=== PATIENT | female | born 1935 | race African-American/Black ===

== ENCOUNTER 2016-10-25 10:01 | Observation (INO) | payer BC, MEDICARE ==
[~2016-10-25] VITALS: Ht 162.6 cm; Wt 58.1 kg
[2016-10-25] MEDS ORDERED: FUROSEMIDE 40MG/4ML VIAL IV STA (10:27)
[2016-10-25] MEDS ORDERED: NITROGLYCERIN OINT 1GM/INCH UDPKT TD STA (10:27)
[2016-10-25 11:20] LABS: BASOPHILS % 0.5 % (0.0-2.0); EOSINOPHILS % 3.6 % (0.0-5.0); HEMATOCRIT. 28.3 % (36.0-48.0); HEMOGLOBIN. 9.2 g/dL (12.0-16.0); LYMPHOCYTES % 14.3 % (20.0-50.0); MEAN CORPUSCULAR HEMOGLOBIN 26.5 pg (28.0-32.0); MEAN CORPUSCULAR VOLUME 81.7 fL (81.0-99.0); MEAN PLATELET VOLUME 9.3 fl (7.4-10.4); MONOCYTES % 10.1 % (2.0-8.0); NEUTROPHILS % 71.5 % (40.0-76.0); PLATELET 232 x1000/uL (130-400); RED BLOOD CELL COUNT 3.47 mill/uL (4.2-5.4); RED CELL DISTRIBUTION WIDTH 13.9 % (11.6-14.6)
[2016-10-25 11:28] LABS: PARTIAL THROMBOPLASTIN TIME 25.3 sec (23.4-31.0); PROTHROMBIN TIME 10.3 sec (9.4-11.6)
[2016-10-25 11:29] LABS: CHLORIDE 107 mEq/L (98-107)
[2016-10-25 11:36] LABS: CARBON DIOXIDE 25 mEq/L (21-32)
[2016-10-25 11:40] LABS: TROPONIN I 0.05 ng/mL (0.00-0.04)
[2016-10-25 18:45] VITALS: BP 132/61
[2016-10-25 19:48] VITALS: BP 110/77
[2016-10-25] MEDS ORDERED: HYDROCODONE/ACETAMINOPHEN 5/325MG TABLET PO PRN ×2 (21:45→22:00)
[2016-10-25] MEDS ORDERED: ONDANSETRON HCL 4MG/2ML VIAL IV PRN (22:00)
[2016-10-25] MEDS ORDERED: ASPIRIN 81MG EC TABLET PO SCH (22:00)
[2016-10-25] MEDS ORDERED: CLONIDINE 0.1MG TABLET PO PRN (22:00)
[2016-10-25] MEDS ORDERED: ACETAMINOPHEN 325MG TABLET PO PRN (22:00)
[2016-10-25 22:23] VITALS: BP 132/61
[2016-10-25] MEDS ORDERED: ENOXAPARIN 30MG/0.3ML SYR SUBCUT SCH (22:30)
[2016-10-26 00:24] VITALS: BP 135/64
[2016-10-26] MEDS ORDERED: DEXTROSE 50% WATER 50ML SYRINGE IV PRN ×2 (00:45→04:30)
[2016-10-26] MEDS ORDERED: INSULIN LISPRO 100 UNITS/ML SUBCUT SCH ×2 (00:51→07:50)
[2016-10-26] MEDS ORDERED: BLOOD SUGAR DIAGNOSTIC STRIP TEST SCH ×2 (00:52→07:20)
[2016-10-26 01:15] LABS: CREATINE KINASE MB FRACTION 1.4 ng/mL (0.5-3.6); TROPONIN I 0.05 ng/mL (0.00-0.04)
[2016-10-26] MEDS ORDERED: DEXTROSE 50% WATER 50ML SYRINGE IV NR ×2 (03:30→04:30)
[2016-10-26] MEDS ORDERED: ONDANSETRON HCL 4MG/2ML VIAL IV PRN ×2 (03:30→10:00)
[2016-10-26] MEDS ORDERED: ACET-2178 PO (04:21)
[2016-10-26] MEDS ORDERED: ASPI-1159 PO (04:21)
[2016-10-26] MEDS ORDERED: CLON0.1T14 PO (04:21)
[2016-10-26] MEDS ORDERED: ONDA4TAB5 PO (04:32)
[2016-10-26] MEDS ORDERED: LOSA100T3 PO (04:32)
[2016-10-26 05:00] VITALS: BP 129/68
[2016-10-26 08:00] VITALS: BP 126/64
[2016-10-26] MEDS ORDERED: ASPIRIN 81MG EC TABLET PO SCH (09:00)
[2016-10-26] MEDS ORDERED: DILTIAZEM HCL 180MG CAPSULE CD 24HR PO SCH ×2 (09:00)
[2016-10-26] MEDS ORDERED: FUROSEMIDE 40MG/4ML VIAL IV SCH ×2 (09:00)
[2016-10-26] MEDS ORDERED: LOSARTAN POTASSIUM 100 MG TABLET PO SCH ×3 (09:00)
[2016-10-26 09:43] LABS: BASOPHILS % 0.8 % (0.0-2.0); EOSINOPHILS % 3.8 % (0.0-5.0); HEMATOCRIT. 28.5 % (36.0-48.0); HEMOGLOBIN. 9.1 g/dL (12.0-16.0); LYMPHOCYTES % 19.9 % (20.0-50.0); MEAN CORPUSCULAR HEMOGLOBIN 26.1 pg (28.0-32.0); MEAN CORPUSCULAR VOLUME 81.8 fL (81.0-99.0); MEAN PLATELET VOLUME 9.5 fl (7.4-10.4); MONOCYTES % 11.3 % (2.0-8.0); NEUTROPHILS % 64.2 % (40.0-76.0); PLATELET 235 x1000/uL (130-400); RED BLOOD CELL COUNT 3.48 mill/uL (4.2-5.4); RED CELL DISTRIBUTION WIDTH 13.8 % (11.6-14.6)
[2016-10-26] MEDS ORDERED: HYDROCODONE/ACETAMINOPHEN 5/325MG TABLET PO PRN (09:45)
[2016-10-26] MEDS ORDERED: CLONIDINE 0.1MG TABLET PO PRN (10:00)
[2016-10-26] MEDS ORDERED: ACETAMINOPHEN 325MG TABLET PO PRN (10:00)
[2016-10-26 10:48] LABS: CARBON DIOXIDE 26 mEq/L (21-32); CHLORIDE 105 mEq/L (98-107); CREATINE KINASE 78 IU/L (26-192); CREATINE KINASE MB FRACTION 1.3 ng/mL (0.5-3.6); HDL CHOLESTEROL 38 mg/dL (40-59); LDL CHOLESTEROL 106 mg/dL (5-100); T4 FREE 1.23 ng/dL (0.76-1.46); TROPONIN I 0.05 ng/mL (0.00-0.04)
[2016-10-26 12:08] VITALS: BP 127/67
[2016-10-26 15:22] VITALS: BP 127/67
[2016-10-26] MEDS ORDERED: ENOXAPARIN 30MG/0.3ML SYR SUBCUT SCH (21:00)
== END 2016-10-26 15:40 | disposition home or self-care (01) ==
LOC: ER 10:18 → 6WST 13:25 → INTOOBSV 13:25 → EDBEDREQ 13:29 → CANRESERV 17:29 → ENRESERV 17:29
PROVIDERS: ADMIT Internal Medicine; ATTEND Internal Medicine
DX: R07.89 Other chest pain (principal); I24.9 Acute ischemic heart disease, unspecified; N18.9 Chronic kidney disease, unspecified; I12.9 Hypertensive chronic kidney disease with stage 1 through stage 4 chronic kidney disease, or unspecified chronic kidney disease; E11.22 Type 2 diabetes mellitus with diabetic chronic kidney disease; F03.90 Unspecified dementia, unspecified severity, without behavioral disturbance, psychotic disturbance, mood disturbance, and anxiety; Z79.4 Long term (current) use of insulin
CPT/HCPCS: 36415; 71010; 78582; 80053; 80061; 82550; 82553; 82962; 83880; 84439; 84443; 84484; 85025; 85610; 85730; 93005; 93306; 96372; 96374; 96376; 97162; 99285; A9540; A9558; G0378; J1650; J1815; J1940

== ENCOUNTER 2016-11-15 15:53 | Inpatient (IN) | payer MEDICARE ==
[~2016-11-15] VITALS: Ht 162.6 cm; Wt 57.6 kg
[~2016-11-15 15:53] MED LIST: ACET-2178 PO; ASPI-1159 PO; CLON0.1T14 PO; LOSA100T3 PO; ONDA4TAB5 PO
[2016-11-15] MEDS ORDERED: FUROSEMIDE 40MG/4ML VIAL IV STA (15:58)
[2016-11-15] MEDS ORDERED: ASPIRIN 81MG TABLET PO STA (15:58)
[2016-11-15 16:22] LABS: BG BASE EXCESS -3.4 mmol/L (-2.0-2.0); BG BILEVEL POS AIRWAY PRESSURE 15/5; BG CARBOXYHEMOGLOBIN 0.1 % (0.5-1.5); BG DEOXYHEMOGLOBIN 1.8 % (0.0-5.0); BG HCO3 ACT 22.2 mmol/L (22.0-26.0); BG METHEMOGLOBIN 0.2 % (0.0-1.5); BG OXYGEN SATURATION 98.2 % (92.0-98.5); BG OXYHEMOGLOBIN 97.9 % (94.0-97.0); BG PCO2 42.1 mmHg (35.0-45.0); BG PO2 115.2 mmHg (75.0-100.0); BG SAMPLE SITE RIGHT RADIAL; BG TOTAL HEMOGLOBIN 9.5 g/dL (12.0-18.0); BG VENT MODE MASK - BIPAP; BG VENT RATE 14 set
[2016-11-15 16:47] LABS: HEMATOCRIT. 26.5 % (36.0-48.0); HEMOGLOBIN. 8.4 g/dL (12.0-16.0); MEAN CORPUSCULAR HEMOGLOBIN 26.1 pg (28.0-32.0); MEAN PLATELET VOLUME 10.1 fl (7.4-10.4); PLATELET 216 x1000/uL (130-400); RED BLOOD CELL COUNT 3.23 mill/uL (4.2-5.4); RED CELL DISTRIBUTION WIDTH 14.3 % (11.6-14.6)
[2016-11-15 16:50] LABS: PARTIAL THROMBOPLASTIN TIME 21.7 sec (23.4-31.0); PROTHROMBIN TIME 10.4 sec (9.4-11.6)
[2016-11-15 16:54] LABS: CARBON DIOXIDE 23 mEq/L (21-32); CHLORIDE 101 mEq/L (98-107); CREATINE KINASE 59 IU/L (26-192)
[2016-11-15 16:55] LABS: CLARITY URINE CLOUDY (CLEAR); COLOR URINE YELLOW (YELLOW); GLUCOSE URINE 1+ (NEGATIVE); KETONES URINE NEGATIVE (NEGATIVE); LEUKOCYTE ESTERASE URINE NEGATIVE (NEGATIVE); NITRITE URINE NEGATIVE (NEGATIVE); OCCULT BLOOD URINE NEGATIVE (NEGATIVE); PROTEIN URINE 3+ (NEGATIVE); UROBILINOGEN URINE 0.2 E.U./dL (0.2-1.0)
[2016-11-15 16:55] LABS: TROPONIN I 0.04 ng/mL (0.00-0.04)
[2016-11-15 18:08] LABS: PLATELET ESTIMATE NORMAL
[2016-11-15 18:32] VITALS: BP 122/65
[2016-11-15 18:43] VITALS: BP 153/65
[2016-11-15] MEDS ORDERED: DEXTROSE 50% WATER 50ML SYRINGE IV PRN (19:30)
[2016-11-15] MEDS ORDERED: CLONIDINE 0.1MG TABLET PO PRN (19:30)
[2016-11-15 20:00] VITALS: BP 153/83
[2016-11-15] MEDS: INSULIN LISPRO 100 UNITS/ML SUBCUT SCH (20:14)
[2016-11-15] MEDS: BLOOD SUGAR DIAGNOSTIC STRIP TEST SCH (20:15)
[2016-11-15 22:00] VITALS: BP 141/60
[2016-11-16] VITALS (12 sets, daily range): BP systolic 129–168; BP diastolic 58–94
[2016-11-16] MEDS: IPRATROPIUM/ALBUTEROL 0.5-3(2.5)MG/3ML NEB HHN SCH ×6 (00:29→21:03)
[2016-11-16 01:02] LABS: CLARITY URINE CLEAR (CLEAR); COLOR URINE YELLOW (YELLOW); GLUCOSE URINE 1+ (NEGATIVE); KETONES URINE NEGATIVE (NEGATIVE); LEUKOCYTE ESTERASE URINE NEGATIVE (NEGATIVE); NITRITE URINE NEGATIVE (NEGATIVE); OCCULT BLOOD URINE 3+ (NEGATIVE); PROTEIN URINE 2+ (NEGATIVE); SPECIFIC GRAVITY URINE 1.013 (1.005-1.030); UROBILINOGEN URINE 0.2 E.U./dL (0.2-1.0)
[2016-11-16] MEDS: BLOOD SUGAR DIAGNOSTIC STRIP TEST SCH ×4 (07:30→21:59)
[2016-11-16] MEDS: INSULIN LISPRO 100 UNITS/ML SUBCUT SCH ×4 (08:52→22:05)
[2016-11-16] MEDS: ASPIRIN 81MG TABLET PO SCH (15:44)
[2016-11-16] MEDS: FUROSEMIDE 40MG/4ML VIAL IVP SCH (15:44)
[2016-11-16] MEDS: ACETAMINOPHEN 325MG TABLET PO PRN ×2 (16:57→22:59)
[2016-11-16] MEDS ORDERED: HYDROCODONE/ACETAMINOPHEN 5/325MG TABLET PO PRN (17:00)
[2016-11-16] MEDS ORDERED: LEVOFLOXACIN 500MG PREMIX 100 ML IV NR (17:00)
[2016-11-16 17:24] LABS: BASOPHILS % 0.2 % (0.0-2.0); EOSINOPHILS % 0.6 % (0.0-5.0); HEMATOCRIT. 25.5 % (36.0-48.0); HEMOGLOBIN. 8.2 g/dL (12.0-16.0); MEAN CORPUSCULAR HEMOGLOBIN 25.9 pg (28.0-32.0); MEAN CORPUSCULAR VOLUME 80.6 fL (81.0-99.0); MONOCYTES % 10.7 % (2.0-8.0); NEUTROPHILS % 72.5 % (40.0-76.0); PLATELET 208 x1000/uL (130-400); RED BLOOD CELL COUNT 3.16 mill/uL (4.2-5.4)
[2016-11-16 17:38] LABS: TROPONIN I 0.05 ng/mL (0.00-0.04)
[2016-11-16] MEDS ORDERED: DIPHENHYDRAMINE 50MG/ML VIAL IV PRN (19:00)
[2016-11-17] VITALS (12 sets, daily range): BP systolic 125–157; BP diastolic 47–98
[2016-11-17] MEDS: IPRATROPIUM/ALBUTEROL 0.5-3(2.5)MG/3ML NEB HHN SCH ×6 (00:45→20:45)
[2016-11-17] MEDS: BLOOD SUGAR DIAGNOSTIC STRIP TEST SCH ×4 (08:15→20:54)
[2016-11-17] MEDS: ENOXAPARIN 30MG/0.3ML SYR SUBCUT SCH (09:22)
[2016-11-17] MEDS: FUROSEMIDE 40MG/4ML VIAL IVP SCH (09:22)
[2016-11-17] MEDS: ASPIRIN 81MG TABLET PO SCH (09:22)
[2016-11-17] MEDS: INSULIN LISPRO 100 UNITS/ML SUBCUT SCH ×4 (09:24→21:23)
[2016-11-17] MEDS: METHYLPREDNISOLONE SOD SUCC 40 MG/ML VIAL IV SCH ×2 (16:22→20:54)
[2016-11-18] VITALS: BP 134/60
[2016-11-18] MEDS: IPRATROPIUM/ALBUTEROL 0.5-3(2.5)MG/3ML NEB HHN SCH ×4 (00:34→13:06)
[2016-11-18 02:00] VITALS: BP 124/57
[2016-11-18 04:00] VITALS: BP 120/54
[2016-11-18 06:00] VITALS: BP 124/56
[2016-11-18 07:46] LABS: HEMATOCRIT. 29.2 % (36.0-48.0); HEMOGLOBIN. 9.4 g/dL (12.0-16.0); MEAN CORPUSCULAR HEMOGLOBIN 25.9 pg (28.0-32.0); MEAN CORPUSCULAR VOLUME 80.4 fL (81.0-99.0); MEAN PLATELET VOLUME 10.3 fl (7.4-10.4); PLATELET 252 x1000/uL (130-400); RED BLOOD CELL COUNT 3.64 mill/uL (4.2-5.4); RED CELL DISTRIBUTION WIDTH 14.2 % (11.6-14.6)
[2016-11-18] MEDS: BLOOD SUGAR DIAGNOSTIC STRIP TEST SCH ×2 (08:11→12:36)
[2016-11-18] MEDS ORDERED: INSULIN LISPRO 100 UNITS/ML SUBCUT NR ×3 (08:30→18:32)
[2016-11-18] MEDS: FUROSEMIDE 40MG/4ML VIAL IVP SCH (08:36)
[2016-11-18] MEDS: METHYLPREDNISOLONE SOD SUCC 40 MG/ML VIAL IV SCH (08:36)
[2016-11-18] MEDS: ENOXAPARIN 30MG/0.3ML SYR SUBCUT SCH (08:36)
[2016-11-18] MEDS: INSULIN LISPRO 100 UNITS/ML SUBCUT SCH ×4 (08:37→18:29)
[2016-11-18] MEDS: ASPIRIN 81MG TABLET PO SCH (08:46)
[2016-11-18 15:50] LABS: PLATELET ESTIMATE NORMAL
[2016-11-18] MEDS: ACETAMINOPHEN 325MG TABLET PO PRN (16:13)
[2016-11-18] MEDS ORDERED: LEVOFLOXACIN 500MG PREMIX 100 ML IV SCH (17:00)
[2016-11-18] MEDS ORDERED: INSULIN LISPRO 100 UNITS/ML SUBCUT ONE (18:20)
== END 2016-11-18 18:51 | disposition short-term general hospital (02) | DRG 291 ==
LOC: ER 15:53 → EDBEDREQ 16:07 → ENRESERV 16:34 → 5EST 17:25 → EDBEDREQ 17:33
PROVIDERS: ADMIT Internal Medicine; ATTEND Internal Medicine
PROC: 5A09457 Assistance with Respiratory Ventilation, 24-96 Consecutive Hours, Continuous Positive Airway Pressure (ICD-10-PCS; principal; 2016-11-15)
DX: I11.0 Hypertensive heart disease with heart failure (principal); J96.90 Respiratory failure, unspecified, unspecified whether with hypoxia or hypercapnia; E11.65 Type 2 diabetes mellitus with hyperglycemia; F03.90 Unspecified dementia, unspecified severity, without behavioral disturbance, psychotic disturbance, mood disturbance, and anxiety; I48.91 Unspecified atrial fibrillation; R65.10 Systemic inflammatory response syndrome (SIRS) of non-infectious origin without acute organ dysfunction; J44.9 Chronic obstructive pulmonary disease, unspecified; Z79.4 Long term (current) use of insulin; Z99.81 Dependence on supplemental oxygen; M48.00 Spinal stenosis, site unspecified; Z79.899 Other long term (current) drug therapy; Z79.82 Long term (current) use of aspirin; I50.43 Acute on chronic combined systolic (congestive) and diastolic (congestive) heart failure
CPT/HCPCS: 36415; 36600; 70450; 71010; 80048; 80053; 81001; 82375; 82550; 82805; 82962; 83605; 83690; 83880; 84443; 84484; 85025; 85610; 85730; 87040; 87086; 93005; 93306; 93970; 94640; 94660; 94664; 99285; J1200; J1650; J1815; J1940; J1956; J2920; J7050; J7620; A4315